=== PATIENT | male | born 1945 ===

== ENCOUNTER 2018-04-10 05:21 | Day surgery (SDC) | payer OTHER ==
[~2018-04-10 05:21] MED LIST: LISINOPRIL10 MG PO; PLAVIX75 MG PO; VALIUM PO; ZANTAC300 MG PO; ZIAC 10/6.25 MG1 TAB PO
[2018-04-10] MEDS ORDERED: RECTICARE30 GM TOP (08:19)
[2018-04-10] MEDS ORDERED: PERCOCET 5-3251 EACH PO (08:19)
[2018-04-10] MEDS ORDERED: ULTRACET PO (13:58)
[2018-04-10] MEDS ORDERED: TAMS0.4C PO (13:58)
== END 2018-04-10 14:40 | disposition home or self-care (01) ==
LOC: CIR.AMB 05:21
DX: K64.5 Perianal venous thrombosis (principal)